=== PATIENT | female | born 1990 | race Caucasian/White ===

== ENCOUNTER 2024-10-25 12:41 | Outpatient (REF) | payer OTHER, SELFPAY ==
--- OUTSIDE RECORDS SUMMARY | 2021-02-05 21:22 | XMS_ITS | Encounter Summary ---
Author Organization [facility] Address [address], [address] [place] [address] Care Team Providers Care Railway Signal Electrician Name Role Phone Unavailable Primary Care Provider Unavailabl e Encounter Details Date Type Department Care Team (Late st Contact Info) Description 02/05/2021 8:22 PM EST Hospital Encounter Santino Jorge MD [address] [place] [address] Social History Tobacco Use Types Packs/Day Years Used Date Smoking Tobacco: Never Smokeless Tobacco: Never Alcohol Use Standard Drinks/Week Comments Yes 0 (1 standard drink = 0.6 oz pur e alcohol) rarely Comments No Sex and Gender Information Value Date Recorded Sex Assigned at Not on file Legal Sex Female 8:52 PM EST Gender Identity Not on file Sexual Orientation Not on file COVID-19 Exposure Response Date Recorded In the last month, have you been in contact with someone who was confirmed or suspected to have Coronavirus / COVID-19? No / Unsure 02/06/2021 11:04 AM EST documented as of this encounter Plan of Treatment Not on file documented as of this encounter Visit Diagnoses Diagnosis Acute cholecystitis documented in this encounter Admitting Diagnoses Diagnosis Acute cholecystitis documented in this encounter
--- OUTSIDE RECORDS SUMMARY | 2024-09-12 14:20 | XMS_ITS | Encounter Summary ---
Author Organization [facility] Address [address] [place] [address] Care Team Providers Care Bilingual Kindergarten Teacher Name Role Phone Tonie Martin MD Primary Care Provider Reason for Visit * Reason Comments Follow-up Encounter Details Date Type Department Care Team (Late st Contact Info) Description 09/12/2024 2:20 PM EDT Office Visit [facility] [address] [place] [address] Elaine Goldman PA [address] [place] [address] Other atopic dermatitis (Primary Dx) Social History Tobacco Use Types Packs/Day Years Used Date Smoking Tobacco: Never Smokeless Tobacco: Never Alcohol Use Standard Drinks/Week Comments Yes 2 (1 standard drink = 0.6 oz pure alcohol) caffeine: 1-2 cups per day occasional, coffee, soda/pop B1300 Health Literacy Answer Date Recor ded How often do you need to hav e someone help you when you read instructions, pamphlets, or other written material from your doctor or pharmacy? Never 02/26/2024 Humiliation, Afraid, Rape, and Kick questionnair e Answer Date Recorded Within the last year, have y ou been afraid of your partner or ex-partner? No 11/26/2022 Within the last year, have y ou been humiliated or emotionally abused in other ways by your partner or ex-partner? No Within the last year, have y ou been kicked, hit, slapped, or otherwise physically hurt by your partner or ex-partner? No 11/26/2022 Within the last year, have y ou been raped or forced to have any kind of sexual activity by your partner or ex-partner? No 11/26/2022 Social Connection and Isolation Panel [NHANES] A nswer Date Recorded In a typical week, how many times do you talk on the phone with family, friends, or neighbors? Three times a week 02/26/2024 How often do you get togethe r with friends or relatives? Once a week 02/26/2024 How often do you attend chur ch or buddhist services? Never 02/26/2024 Do you belong to any clubs o r organizations such as advent groups, unions, fraternal or athletic groups, or school groups? No 02/26/2024 How often do you attend meet ings of the clubs or organizations you belong to? Never 02/26/2024 Are you , , di vorced, , never , or living with a partner? 02/26/2024 AUDIT-C Answer Date Recorded Q1: How often do you have a drink containing alc ohol? Monthly or less 02/26/2024 Q2: How many drinks containi ng alcohol do you have on a typical day when you are drinking? 1 or 2 02/26/2024 Q3: How often do you have si x or more drinks on one occasion? Less than monthly 02/26/2024 Overall Financial Resource Strain (CARDIA) Answe r Date Recorded How hard is it for you to pa y for the very basics like food, housing, medical care, and heating? Not hard at all 02/26/2024 PHQ-2 Answer Date Recorded Patient Health Questionnaire-2 Score 0 09/21/2024 [facility] - Occupational Stress Questionnaire Answer Date Recorded Do you feel stress - tense, restless, nervous, or anxious, or unable to sleep at night because your mind is troubled all the time - these days? Only a little 02/26/2024 Exercise Vital Sign Answer Date Recorde d On average, how many days pe r week do you engage in moderate to strenuous exercise (like a brisk walk)? 0 days 02/26/2024 On average, how many minutes do you engage in exercise at this level? 0 min 02/26/2024 Hunger Vital Sign Answer Date Recorded Within the past 12 months, y ou worried that your food would run out before you got the money to buy more. Never true 02/26/20 24 Within the past 12 months, t he food you bought just didn't last and you didn't have money to get more. Never true 02/26/2024 PRAPARE - Transportation Answer Date Re corded In the past 12 months, has l ack of transportation kept you from medical appointments or from getting medications? No 08/2023 In the past 12 months, has l ack of transportation kept you from meetings, work, or from getting things needed for daily living? No 02/26/2024 Housing Stability Vital Sign Answer Hakeem e Recorded In the last 12 months, was t here a time when you were not able to pay the mortgage or rent on time? No 11/26/2022 In the last 12 months, how many places have you lived? 1 11/26/2022 In the last 12 months, was t here a time when you did not have a steady place to sleep or slept in a half-way (including now)? No 11/26/2022 Housing Stability Vital Sign Answer Hakeem e Recorded In the last 12 months, was t here a time when you were not able to pay the mortgage or rent on time? No 02/26/2024 Number of Times Moved in the Last Year Not on fi le 02/26/2024 At any time in the past 12 m [facility], were you homeless or living in a half-way (including now)? No 02/26/2024 Comments Unknown Sex and Gender Information Value Date Recorded Sex Assigned at Not on file Legal Sex Female 7:35 PM EDT Gender Identity Not on file Sexual Orientation Not on file documented as of this encounter Last Filed Vital Signs Vital Sign Reading Time Taken Comments Blood Pressure - - Pulse - - Temperature - - Respiratory Rate - - Oxygen Saturation - - Inhaled Oxygen Concentration - - Weight 89.5 kg (197 lb 5 oz) 09/12/2024 4:06 PM EDT Height - - Body Mass Index 34.95 06/22/2024 4:03 PM EDT documented in this encounter Functional Status * Over the past 2 weeks, how often have you been bothered by any of the following problems? Question Answer Date of Assessment Author Patient Health Questionnaire -2 Score 0 09/21/2024 4:00 PM Rain Rose MA * If you checked off any problems on this questionnaire so far, Question Answer Date of Assessment Author How difficult have these problems made it for you to do your work, take care of things at home, or get along with other people? Not difficult at all 09/21/2024 4:00 PM Ivis Rose MA * Over the last 2 weeks, how often have you been bothered by any of the following problems? Question Answer Date of Assessment Author Feeling nervous, anxious, or on edge 2 09/21/2024 4:00 PM Rain Rose MA Not being able to stop or control worrying 3 09/21/2024 4:00 PM Rain Rose MA Worrying too much about different things 3 09/21/2024 4:00 PM Rain Rose MA Trouble relaxing 3 09/21/2024 4:00 PM Arely Ghosh MA Being so restless that it is hard to sit still 0 09/21/2024 4:00 PM Rain Rose MA Becoming easily annoyed or irritable 2 09/21/2024 4:00 PM Rain Rose MA Feeling afraid as if somethi ng awful might happen 1 09/21/2024 4:00 PM Rain Rose MA HERLINDA-7 Total Score 14 09/21/2024 4:00 PM Arely Rose MA * Over the past 2 weeks, how often have you been bothered by any of the following problems? Question Answer Date of Assessment Author Little interest or pleasure in doing things Not at all 09/21/2024 4:00 PM Me colt Rose MA Feeling down, depressed, or hopeless Not at all 09/21/2024 4:00 PM Rain Rose MA Trouble falling or staying asleep, or sleeping too much Nearly every day 09/21/2024 4:00 PM Rain Rose MA Feeling tired or having little energy Nearly every day 09/21/2024 4:00 PM EDT Rain King MA Poor appetite or overeating Not at all 09/21/2024 4:00 PM Rain Rose MA Feeling bad about yourself - or that you are a failure or have let yourself or your family down Not at all 09/21/2024 4:00 PM Rain Rose MA Trouble concentrating on things, such as reading the newspaper or watching television Not at all 09/21/2024 4:00 PM KOREYT Rain King MA Moving or speaking so slowly that other people could have noticed? Or the opposite - being so fidgety or restless that you have been moving around a lot more than usual. Not at all 09/21/2024 4:00 PM Rain Rose MA Thoughts that you would be better off or hurting yourself in some way Not at all 09/21/2024 4:00 PM EDIvis Frankel MA Patient Health Questionnaire-9 Score 6 09/21/2024 4:00 PM EDTaya Frankel MA documented as of this encounter Progress Notes * RIGOBERTO Figueredo - 09/12/2024 2:20 PM EDT Images from the original note were not included. Follow up Diagnosis: Atopic Dermatitis Location: face, neck, ears, and arms Last visit: 12/22/2023 Symptoms: redness, scaling, and itching Status: worsening since last visit Treatments tried and failed: steriods creams - Used Tacrolimus ointment 12/22/2023- Current. - Used Triamcinolone cream 04/11/2019-03/2022. - Used Hydrocortisone cream 03/2022- Current. Current treatment: Protopic ointment and hydrocortisone bid, sometimes more than 2 times a day and moisturizer called la vance posay. Patient is currently on tobradex steriod ointment for her eyes 1-2 times a day or as needed All pertinent medical history, medications, and allergies were reviewed. General Exam: alert, oriented to person, place, and time, normal affect, well appearing Unaccompanied A focused exam completed based on patient reported problems, see below: Skin Exam 1. OTHER ATOPIC DERMATITIS Generalized Scaly erythematous plaques +/- dyspigmentation, lichenification, excoriations. Flaring today. BSA 40%. IGA 3 Discussed that atopic dermatitis is a chronic condition that can be controlled but not cured. This is a known condition for the patient. She has had past flares in this area, treated with topical steroids. Would like to avoid topical steroids as fci use on the face is contraindicated and can lead to perioral dermatitis. She has now tried and failed, Triamcinolone, Hydrocortisone and Protopic for longer than 90 days. She continues to flare on the face and extremities. This has started to affect her daily life and her vision as well. Oral options used to treat atopic dermatitis carry significant risks that often outweigh their benefits in [id number] disease. Here's a breakdown of why these treatments are used with caution or not preferred: 1. JOSHUA Inhibitors (e.g., upadacitinib, abrocitinib, tofacitinib) Risks: Increased risk of serious infections, blood clots, cardiovascular events, and malignancy. Contraindicated in this patient with hypertension. FDA warning: Boxed warning for serious side effects. 2. Prednisone (oral corticosteroids) Short-term use only: While effective, systemic corticosteroids like prednisone are not recommended for long-term management due to: Rebound flares after discontinuation Risk of adrenal suppression Osteoporosis, hypertension, diabetes, weight gain Mood/psychiatric effects. Contraindicated in this patient who has depression. Sometimes used for short-term rescue therapy during severe flares but should be avoided for chronicmanagement. 3. CellCept (Mycophenolate mofetil) Immunosuppressive: Strongly suppresses the immune system, raising infection and cancer risks. Side effects: GI upset, bone marrow suppression, liver toxicity. Monitoring: Requires regular lab monitoring (CBC, LFTs). Off-label use: Not FDA-approved for eczema; used only in severe, treatment- resistant cases. Due to contraindications of oral treatments and failed topical treatments. Plan to start Dupixent 600 mg subcutaneous loading dose, then maintenance dose of 300 mg subcutaneous Q 2 weeks once PA is approved. Reviewed side effects of dupixent including conjunctivitis, allergic reactions, and injection site reactions. Continue Protopic 0.1% ointment bid prn when flared, hold if smooth/asymptomatic, and start TAC 0.1% apply topically to affected areas on body bid as needed, avoid intertriginous regions with steroid. Encouraged daily moisturizing and gentle cleansers to prevent flares. triamcinolone (Kenalog) 0.1 % cream Apply topically to neck and arms bid as needed, avoid face, axilla, and groin Related Medications tacrolimus (Protopic) 0.1 % ointment Apply to affected areas, twice a day when flared, 30 day supply Next Visit: Pending PA approval documented in this encounter Plan of Treatment Not on file documented as of this encounter Visit Diagnoses Diagnosis Other atopic dermatitis- Primary documented in this encounter Additional Health Concerns Assessment Noted Time PHQ-9 Depression Total Score: 7 06/23/19 25 4:00 PM EDT documented as of this encounter Care Teams Bilingual Kindergarten Teacher Relationship Specialty Start Date End Date Tonie Martin MD [address] [place] [address] PCP - General Family Medicine 02/23/24 documented as of this encounter
--- OUTSIDE RECORDS SUMMARY | 2024-10-25 08:30 | XMS_ITS | Encounter Summary ---
Author Organization [facility] Address [address] [place] [address] Care Team Providers Care Delicatessen Clerk Name Role Phone Tonie Martin MD Primary Care Provider [phone] Reason for Visit * Reason Comments Gynecologic Exam Encounter Details Date Type Department Care Team (Late st Contact Info) Description 10/25/2024 8:30 AM EDT Office Visit [facility] [address] [id number] Stan Ely DO [address] [place] [address] Well woman exam with routine gynecological exam; Uses control Social History Tobacco Use Types Packs/Day Years [...] often do you attend chur ch or restoration services? Never 02/26/2024 Do you belong to any clubs o r organizations such as worship groups, unions, fraternal or athletic groups, or [...] Recorded Patient Health Questionnaire-2 Score 0 09/21/2024 [facility] Occupational Stress Questionnaire Answer [...] place to sleep or slept in a chcf (including now)? No 11/26/2022 Housing Stability Vital Sign Answer Hakeem e Recorded In the last 12 months, was t here a time when you were not able to pay the mortgage or rent on time? No 02/26/2024 Number of Times Moved in the Last Year Not on fi le 02/26/2024 At any time in the past 12 m [facility], were you homeless or living in a chcf (including now)? No 02/26/2024 Comments No Sex and Gender Information Value Date Recorded Sex Assigned at Not on file Legal Sex Female 7:35 PM EDT Gender Identity Not on file Sexual Orientation Not on file documented as of this encounter Last Filed Vital Signs Vital Sign Reading Time Taken Comments Blood Pressure 122/74 10/25/2024 8:35 AM EDT Pulse - - Temperature - - Respiratory Rate - - Oxygen Saturation - - Inhaled Oxygen Concentration - - Weight 91.2 kg (201 lb) 10/25/2024 8:35 AM EDT Height 160 cm (5' 3 ) 10/25/2024 8:35 AM EDT Body Mass Index 35.61 10/25/2024 8:35 AM EDT documented in this encounter Progress Notes * RIGOBERTO Dunn - 10/25/2024 8:30 AM EDT Reason for Appointment: Patient ID: Franci Everett is a 34 y.o. female who presents for Gynecologic Exam Patient presents today for Annual Exam. MEDICATIONS Current Outpatient Medications Medication Instructions levonorgestrel-ethinyl estradiol (Setlakin) 0.15-0.03 MG tablet 1 tablet, Oral, Daily sertraline (ZOLOFT) 50 mg, Oral, Daily tacrolimus (Protopic) 0.1 % ointment Apply to affected areas, twice a day when flared, 30 day supply triamcinolone (Kenalog) 0.1 % cream Apply topically to neck and arms bid as needed, avoid face, axilla, and groin Ubrogepant (Ubrelvy) 100 MG tablet 100mg (1 tablet) as needed for migraine attack. May take [id number] (1 tablet) 2 hours after first dose if needed. Max dose 200mg/24 hours. ALLERGIES No Known Allergies PROBLEMS Active Ambulatory Problems Diagnosis Date Noted Acute cholecystitis 02/05/2021 Allergic conjunctivitis 11/27/2022 Bleeding external hemorrhoids 11/27/2022 Cholelithiasis 11/27/2022 Class 1 obesity 11/27/2022 Obesity 11/27/2022 Contact dermatitis 11/27/2022 Eczema 11/27/2022 Elevated blood pressure reading without diagnosis of hypertension 11/27/2022 Gastroesophageal reflux disease 11/27/2022 Migraine with aura 11/27/2022 Depression 11/27/2022 depression 11/27/2022 Seasonal allergic rhinitis 11/27/2022 Sinusitis 11/27/2022 Resolved Ambulatory Problems Diagnosis Date Noted No Resolved Ambulatory Problems Past Medical History: Diagnosis Date Allergic rhinitis Blood pressure elevated without history of HTN BP check Cholecystitis/cholelithiasis-2020 Conjunctivitis Contraception management Migraine Miscarriage ([facility]) Obesity (BMI 30-39.9) Uses control Well woman exam HISTORY PAST MEDICAL HISTORY SOCIAL HISTORY Past Medical History: Diagnosis Date Allergic conjunctivitis Allergic rhinitis Blood pressure elevated without history of HTN BP check Cholecystitis/cholelithiasis-2020 Conjunctivitis Contact dermatitis Contraception management Depression Eczema Migraine Miscarriage ([facility]) at 9wks April 2017 Obesity (BMI 30-39.9) Sinusitis Uses control Well woman exam Social History Tobacco Use Smoking status: Never Smokeless tobacco: Never Vaping Use Vaping status: Never Used Substance Use Topics Alcohol use: Yes Alcohol/week: 2.0 standard drinks of alcohol Types: 2 Standard drinks or equivalent per week Comment: caffeine: 1-2 cups per day occasional, coffee, soda/pop Drug use: Never FAMILY HISTORY Family History Problem Relation Name Age of Onset Allergic rhinitis Mother Lumbar disc disease Mother Depression Mother Asthma Father Heraclio Other (teenage ) Sister Diabetes Paternal Grandmother Hypertension Paternal Grandmother Hyperlipidemia Paternal Grandmother Arthritis Paternal Grandmother Melanoma Neg Hx SURGICAL HISTORY Past Surgical History: Procedure Laterality Date CHOLECYSTECTOMY 02/2021 [place] DILATION AND CURETTAGE 04/2017 @ [facility] MARCUM 01/2021 [facility] REVIEW OF SYSTEMS Review of Systems: Review of Systems Constitutional: Negative. HENT: Negative. Eyes: Negative. Respiratory: Negative. Cardiovascular: Negative. Gastrointestinal: Negative. Genitourinary: Negative. Musculoskeletal: Negative. Skin: Negative. Neurological: Negative. All other systems reviewed and are negative. Hematological: Negative. Endocrine: Negative. Allergic/Immunologic: Negative. OBJECTIVE Objective: Physical Exam Constitutional: Appearance: Normal appearance. She is normal weight. Genitourinary: Right Adnexa: not tender and no mass present. Left Adnexa: not tender and no mass present. No cervical discharge. Breasts: Breasts are soft. Right: Normal. Left: Normal. HENT: Head: Normocephalic. Nose: Nose normal. Mouth/Throat: Mouth: Mucous membranes are moist. Cardiovascular: Rate and Rhythm: Normal rate. Pulses: Normal pulses. Pulmonary: Effort: Pulmonary effort is normal. Breath sounds: Normal breath sounds. Abdominal: General: Bowel sounds are normal. Palpations: Abdomen is soft. Musculoskeletal: General: Normal range of motion. Cervical back: Normal range of motion. Neurological: General: No focal deficit present. Mental Status: She is alert and oriented to person, place, and time. Skin: General: Skin is warm and dry. Psychiatric: Mood and Affect: Mood normal. Behavior: Behavior normal. Thought Content: Thought content normal. Judgment: Judgment normal. Vitals and nursing note reviewed. Exam conducted with a rope coiling machine operator present. Vitals: Estimated body mass index is 35.61 kg/m?? as calculated from the following: Height as of this encounter: 5' 3 . Weight as of this encounter: 201 lb. BP: 122/74 No LMP recorded (lmp unknown). (Menstrual status: Oral Contraception). ASSESSMENT & PLAN ICD-10-CM 1. Well woman exam with routine gynecological exam Z01.419 Pap Smear HPV DNA probe, amplified 2. Uses control Z78.9 levonorgestrel-ethinyl estradiol (Setlakin) 0.15- 0.03 MG tablet Annual Exam: Patient presents today for an annual exam. Patient states she is doing well and has no complaints. Pap was obtained without difficulty. Orders Placed This Encounter Procedures HPV DNA probe, amplified Follow Up: Patient is to return in one year for annual unless needed otherwise. Documented by RIGOBERTO Dunn documented in this encounter Plan of Treatment Scheduled Orders Name Type Priority Associated Diagnoses Orde r Schedule Pap Smear Pathology and Cytology Routine Well woman exam with routine gynecological exam Ordered: 10/25/2024 HPV DNA probe, amplified Microbiology Routine Well woman exam with routine gynecological exam Ordered: 10/25/2024 documented as of this encounter Procedures Procedure Name Priority Date/Time Associated Diagnosis Comments PAP SMEAR Routine 06/09/2022 12:00 AM EDT documented in this encounter Results * Pap Smear (06/09/2022 12:00 AM EDT) Swab Cervical swab / Unknown us Stan Jhoana DO LAB CYTOLOGY ORDERABLES Final Re sult EXTERNAL LAB documented in this encounter Visit Diagnoses Diagnosis Well woman exam with routine gynecological exam Routine gynecological examination Uses control documented in this encounter Additional Health Concerns Assessment Noted Time PHQ-9 Depression Total Score: 6 09/22/19 25 4:00 PM EDT documented as of this encounter Care Teams Delicatessen Clerk Relationship Specialty Start Date End Date Tonie Martin MD [address] [place] [address] PCP - General Family Medicine 02/23/24 documented as of this encounter
--- OUTSIDE RECORDS SUMMARY | 2024-10-25 12:53 | XMS_ITS | Clinical Summary ---
Author Organization [facility] Address [address] [place] [address] Care Team Providers Care Gas Welder Name Role Phone Tonie Martin MD Primary Care Provider [phone] Allergies No known active allergies Medications tacrolimus (Protopic) 0.1 % ointmentIndicat ions:Other atopic dermatitis Apply to affected areas, twice a day when flared, 30 day supply 30 g 11 4 Active triamcinolone (Kenalog) 0.1 % creamIndication s:Other atopic dermatitis Apply topically to neck and arms bid as needed, avoid face, axilla, and groin 453.6 g 11 5 Active Ubrogepant (Ubrelvy) 100 MG tabletIndicatio ns:Migraine with aura and without status migrainosus, not intractable 100mg (1 tablet) as needed for migraine attack. May take another 100mg (1 tablet) 2 hours after first dose if needed. Max dose 200mg/24 hours. 16 tablet 1 5 Active sertraline (Zoloft) 50 MG tabletIndicatio ns:Moderate episode of recurrent major depressive disorder (HCC),Anxiety Take 1 tablet (50 mg) by mouth Daily 30 tablet 5 11/12/19 25 Active levonorgestrel- ethinyl estradiol (Setlakin) 0.15-0.03 MG tabletIndicatio ns:Uses control Take 1 tablet by mouth Daily 91 tablet 3 5 01/25/20 25 Active levonorgestrel- ethinyl estradiol (Setlakin) 0.15-0.03 MG tabletIndicatio ns:Uses control Take 1 tablet by mouth Daily 91 tablet 5 10/26/19 25 Discontinu ed(Reorder ) sertraline (Zoloft) 50 MG tabletIndicatio ns:Moderate episode of recurrent major depressive disorder (HCC),Anxiety Take 1 tablet (50 mg) by mouth Daily 5 10/12/19 25 Discontinu ed(Reorder ) Active Problems Problem Noted Date Diagnosed Date Allergic conjunctivitis 11/27/2022 Bleeding external hemorrhoids 11/27/2022 Cholelithiasis 11/27/2022 Class 1 obesity 11/27/2022 Obesity 11/27/2022 Contact dermatitis 11/27/2022 Eczema 11/27/2022 Elevated blood pressure read ing without diagnosis of hypertension 11/27/2022 Gastroesophageal reflux disease 11/27/2022 Assessment & Plan (09/21/2024 4:53 PM EDT): Orders: CBC and differential; Future Comprehensive metabolic panel; Future Stable Migraine with aura 11/27/2022 Assessment & Plan (09/21/2024 4:53 PM EDT): Orders: Ubrogepant (Ubrelvy) 100 MG tablet; 100mg (1 tablet) as needed for migraine attack. May take another 100mg (1 tablet) 2 hours after first dose if needed. Max dose 200mg/24 hours. Depression 11/27/2022 Assessment & Plan (09/21/2024 4:53 PM EDT): Orders: sertraline (Zoloft) 50 MG tablet; Take 1 tablet (50 mg) by mouth Daily depression 11/27/2022 Seasonal allergic rhinitis 11/27/2022 Sinusitis 11/27/2022 Acute cholecystitis 02/05/2021 Encounters Date Type Department Care Team Description 10/25/2024 8:30 AM EDT Office Visit [facility] [address] [place] [address] [place] [address] Stan Ely, DO Well woman exam with routine gynecological exam; Uses control 10/25/2024 Bamboo flowsheet [facility] [address] [place] [address] [place] [address] Stan Ely DO 10/11/2024 Refill [facility] [address] [facility] [place] [address] Tonie Martin MD Moderate episode of recurrent major depressive disorder (HCC); Anxiety 10/03/2024 Telephone [facility] [address] [facility] [place] [address] Tonie Martin MD 09/22/2024 Telephone [facility] [address] [facility] [place] [address] Belen Smith MA 09/21/2024 4:00 PM EDT Office Visit [place] [id number] [facility] [place] [address] Tiesha Yeh NP Routine general medical examination at a health care facility (Primary Dx); Moderate episode of recurrent major depressive disorder (HCC); Lipid screening; Migraine with aura and without status migrainosus, not intractable ; Gastroesophageal reflux disease without esophagitis; Morbid (severe) obesity due to excess calories ([facility]); Body mass index (BMI) 35.0-35.9, adult; Anxiety; Encounter for screening for diabetes mellitus; Mass of left side of neck 09/21/2024 Bamboo flowsheet [facility] [address] [facility] [place] [address] Tiesha Yeh NP 09/21/2024 Travel 09/20/2024 Travel 09/15/2024 Telephone [facility] [address] [place] [address] Aubree Palomino LPN Prior Authorization 09/12/2024 2:20 PM EDT Office Visit [facility] [address] [place] [address] Elaine Goldman PA Other atopic dermatitis (Primary Dx) 09/12/2024 Bamboo flowsheet [facility] [address] [place] [address] Elaine Goldman PA 09/12/2024 Travel 09/11/2024 Travel 09/08/2024 Telephone [facility] [address] [address] Herminia Ramon LPN from Last 3 Months Immunizations Immunization Administration Dates Next Due DTP 11/04/2020 Influenza, injectable, quadrivalent 01/31/2021 Family History Medical History Relation Name Comments Asthma Father Heraclio Allergic rhinitis Mother Depression Mother Lumbar disc disease Mother Arthritis Paternal Grandmother Diabetes Paternal Grandmother Hyperlipidemia Paternal Grandmother Hypertension Paternal Grandmother teenage Sister Melanoma Neg Hx Relation Name Status Comments Daughter x3 Father Heraclio Alive Mother Alive Paternal Grandmother Sister Social History Tobacco Use Types Packs/Day Years Used Date Smoking Tobacco: Never Smokeless Tobacco: Never Tobacco Cessation:Counseling Given: Not Answered Alcohol Use Standard Drinks/Week Comments Yes 2 [...] 02/26/2024 How often do you attend chur or sabianist services? Never 02/26/2024 Do you belong to any clubs o r organizations such as synagogue groups, unions, fraternal or athletic groups, or [...] Recorded Patient Health Questionnaire-2 Score 0 09/21/2024 [facility]ational Stress Questionnaire [...] place to sleep or slept in a fci (including now)? No 11/26/2022 Housing Stability Vital Sign Answer Hakeem e Recorded In the last 12 months, was t here a time when you were not able to pay the mortgage or rent on time? No 02/26/2024 Number of Times Moved in the Last Year Not on fi le 02/26/2024 At any time in the past 12 m [facility], were you homeless or living in a fci (including now)? No 02/26/2024 Comments No Sex and Gender Information Value Date Recorded Sex Assigned at Not on file Legal Sex Female 7:35 PM EDT Gender Identity Not on file Sexual Orientation Not on file Last Filed Vital Signs Vital Sign Reading Time Taken Comments Blood Pressure 122/74 10/25/2024 8:35 AM EDT Pulse 83 09/21/2024 3:59 PM EDT Temperature 36.6 C (97.8 F) 09/21/2024 3:59 PM EDT Respiratory Rate 18 06/22/2024 4:03 PM EDT Oxygen Saturation 96% 09/21/2024 3:59 PM EDT Inhaled Oxygen Concentration - - Weight 91.2 kg (201 lb) 10/25/2024 8:35 AM EDT Height 160 cm (5' 3 ) 10/25/2024 8:35 AM EDT Body Mass Index 35.61 10/25/2024 8:35 AM EDT Plan of Treatment Health Maintenance Due Date Last Done Comments Influenza Vaccine (#1) 2024 01/31/2021 Cervical Cancer Screening 06/10/2027 HPV/Cotest 06/10/2027 06/09/2022 Pap Smear 06/10/2027 06/09/2022 Procedures Procedure Name Priority Date/Time Associated Diagnosis Comments TSH W/REFLEX TO FT4 Routine 09/21/2024 4 :25 PM EDT Morbid (severe) obesity due to excess calories (CMS-HCC) Body mass index (BMI) 35.0-35.9, adult Anxiety LIPID PANEL Routine 09/21/2024 4:25 PM EDT Routine general medical examination at a health care facility Lipid screening Morbid (severe) obesity due to excess calories (CMS-HCC) Body mass index (BMI) 35.0-35.9, adult COMPREHENSIVE METABOLIC PANEL Routine 09/21/2024 4:25 PM EDT Routine general medical examination at a health care facility Gastroesophageal reflux disease without esophagitis Morbid (severe) obesity due to excess calories (CMS-HCC) Body mass index (BMI) 35.0-35.9, adult Encounter for screening for diabetes mellitus CBC (INCLUDES DIFF/PLT) Routine 09/21/2024 4:25 PM EDT Routine general medical examination at a health care facility Gastroesophageal reflux disease without esophagitis Morbid (severe) obesity due to excess calories (CMS-HCC) Body mass index (BMI) 35.0-35.9, adult PAP SMEAR Routine 06/09/2022 12:00 AM EDT from Last 3 Months or Most Recently Relevant to Health Maintenance Results * TSH W/REFLEX TO FT4 (09/21/2024 4:25 PM EDT) TSH W/REFLEX TO FT4 3.30 mIU/L [facility] Comment: Reference Range > or = 20 Years 0.40-4.50 Ranges First trimester 0.26-2.66 Second trimester 0.55-2.73 Third trimester 0.43-2.91 09/21/2024 4:25 PM EDT 09/21/2024 4:25 PM EDT Narrative Resulting Agency Comment Performing Organization Information Site ID: QPT Name: [facility] Address: [address], [address] [place] [address] Director: Kali Cunningham MD us Tiesha Yeh [employer] LAB BLOOD ORDERABLES Final Resu lt [facility] * CBC and differential (09/21/2024 4:25 PM EDT) WHITE BLOOD CELL COUNT 8.8 3.8 - 10.8 Thousand/u L [facility] RED BLOOD CELL COUNT 3.96 3.80 - 5.10 Million/uL [facility] HEMOGLOBIN 12.9 11.7 - 15.5 g/dL [facility] HEMATOCRIT 38.7 35.0 - 45.0 % [facility] MCV 97.7 80.0 - 100.0 fL [facility] MCH 32.6 27.0 - 33.0 pg [facility] MCHC 33.3 32.0 - 36.0 g/dL [facility] Comment: For adults, a slight decrease in the calculated MCHC value (in the range of 30 to 32 g/dL) is most likely not clinically significant; however, it should be interpreted with caution in correlation with other red cell parameters and the patient's clinical condition. RDW 11.7 11.0 - 15.0 % [facility] PLATELET COUNT 316 140 - 400 Thousand/u L [facility] MPV 11.0 7.5 - 12.5 fL [facility] ABSOLUTE NEUTROPHILS 5,236 1,500 - 7,800 cells/uL [facility] ABSOLUTE LYMPHOCYTES 2,772 850 - 3,900 cells/uL [facility] ABSOLUTE MONOCYTES 484 200 - 950 cells/uL [facility] ABSOLUTE EOSINOPHILS 246 15 - 500 cells/uL [facility] ABSOLUTE BASOPHILS 62 0 - 200 cells/uL [facility] NEUTROPHILS 59.5 % [facility] LYMPHOCYTES 31.5 % [facility] MONOCYTES 5.5 % [facility] EOSINOPHILS 2.8 % [facility] BASOPHILS 0.7 % [facility] Blood Venous blood specimen / Unknown 09/21/2024 4:25 PM EDT 09/21/2024 4:25 PM EDT Narrative Resulting Agency Comment Performing Organization Information Site ID: QPT Name: [facility] Address: [address], [address] [place] [address] Director: Kali Cunningham MD us Tiesha Yeh [employer] [facility] BLOOD ORDERABLES Final Resu lt [facility] * (ABNORMAL) Lipid panel (09/21/2024 4:25 PM EDT) CHOLESTEROL, TOTAL 206(H) <200 mg/dL [facility] HDL CHOLESTEROL 57 > OR = 50 mg/dL [facility] TRIGLYCERIDES 84 <150 mg/dL [facility] LDL CHOLESTEROL 131(H) mg/dL (calc) [facility] Comment: Reference range: <100 Desirable range <100 mg/dL for primary prevention; <70 mg/dL for patients with CHD or diabetic patients with > or = 2 CHD risk factors. LDL-C is now calculated using the Tory calculation, which is a validated novel method providing better accuracy than the Friedewald equation in the estimation of LDL-C. Jasper GUO et al. RAMA. 2013;310(19): 0049-5165 (http://education.TrustGo/faq/GJU614) CHOL/HDLC RATIO 3.6 <5.0 (calc) [facility] NON HDL CHOLESTEROL 149(H) <130 mg/dL (calc) [facility] Comment: For patients with diabetes plus 1 major ASCVD risk factor, treating to a non-HDL-C goal of <100 mg/dL (LDL-C of <70 mg/dL) is considered a therapeutic option. Blood Venous blood specimen / Unknown 09/21/2024 4:25 PM EDT 09/21/2024 4:25 PM EDT Narrative Resulting Agency Comment Performing Organization Information Site ID: QPT Name: [facility] Address: [address] [place] [address], [address] [place] [phone] Director: Kali Cunningham MD Tiesha Yeh [employer] [facility] BLOOD ORDERABLES Final Resu lt [facility] * Comprehensive metabolic panel (09/21/2024 4:25 PM EDT) Glucose 83 65 - 99 mg/dL [facility] Comment: Fasting reference interval BUN 19 7 - 25 mg/dL [facility] Creatinine 0.55 0.50 - 0.97 mg/dL [facility] EGFR 123 > OR = 60 mL/min/1. 73m2 [facility] BUN/CREATININE RATIO SEE NOTE: 6 - 22 (calc) [facility] Comment: Not Reported: BUN and Creatinine are within reference range. Sodium 138 135 - 146 mmol/L [facility] Potassium, Bld 4.1 3.5 - 5.3 mmol/L [facility] Chloride 105 98 - 110 mmol/L [facility] Carbon Dioxide 26 20 - 32 mmol/L [facility] Calcium 9.1 8.6 - 10.2 mg/dL [facility] PROTEIN, TOTAL 6.3 6.1 - 8.1 g/dL [facility] ALBUMIN 3.9 3.6 - 5.1 g/dL [facility] GLOBULIN 2.4 1.9 - 3.7 g/dL (calc) [facility] ALBUMIN/GLOBULIN RATIO 1.6 1.0 - 2.5 (calc) [facility] BILIRUBIN, TOTAL 0.5 0.2 - 1.2 mg/dL [facility] ALKALINE PHOSPHATASE 67 31 - 125 U/L [facility] AST 12 10 - 30 U/L [facility] ALT 16 6 - 29 U/L [facility] Blood Venous blood specimen / Unknown 09/21/2024 4:25 PM EDT 09/21/2024 4:25 PM EDT Narrative Resulting Agency Comment Performing Organization Information Site ID: QPT Name: [facility] Address: [address] [place] [address], [address] [place] [phone] Director: Kali Cunningham MD us Tiesha Yeh [employer] BLOOD ORDERABLES Final Resu lt [facility] * Pap Smear (06/09/2022 12:00 AM EDT) Swab Cervical swab / Unknown us Stan Ely DO LAB CYTOLOGY ORDERABLES Final Re sult EXTERNAL LAB from Last 3 Months or Most Recently Relevant to Health Maintenance [address] [place] [address] [facility] Care Teams Gas Welder Relationship Specialty Start Date End Date Tonie Mratin MD [address] [place] [address] PCP - General Family Medicine 02/23/24
--- OUTSIDE RECORDS SUMMARY | 2024-10-25 12:53 | XMS_ITS | Encounter Summary ---
Author Organization [facility] Address [address] [facility] [place] [address] Care Team Providers Care Diver Helper Name Role Phone Tonie Martin MD Primary Care Provider [phone] Encounter Details Date Type Department Care Team (Late st Contact Info) Description 10/11/2024 Refill [facility] Family Medicine [address] [place] [address] Tonie Martin MD [address] [place], [place] [id number] Moderate episode of recurrent major depressive disorder (HCC); Anxiety Social History Tobacco Use Types Packs/Day Years [...] often do you attend chur ch or yazidism services? Never 02/26/2024 Do you belong to any clubs o r organizations such as taoism groups, unions, fraternal or athletic groups, or [...] Recorded Patient Health Questionnaire-2 Score 0 09/21/2024 [facility] Occupat ional Health - Occupational Stress [...] any time in the past 12 m [facility], were you homeless or living in a chcf (including now)? No 02/26/2024 Comments Unknown Sex and Gender Information Value Date Recorded Sex Assigned at Not on file Legal Sex Female 7:35 PM EDT Gender Identity Not on file Sexual Orientation Not on file documented as of this encounter Plan of Treatment Not on file documented as of this encounter Visit Diagnoses Diagnosis Moderate episode of recurrent major depressive disorder (HCC) Anxiety Anxiety state, unspecified documented in this encounter Additional Health Concerns Assessment Noted Time PHQ-9 Depression Total Score: 6 09/22/19 25 4:00 PM EDT documented as of this encounter Care Teams Diver Helper Relationship Specialty Start Date End Date Tonie Martin MD [address] [place] [address] PCP - General Family Medicine 02/23/24 documented as of this encounter
--- OUTSIDE RECORDS SUMMARY | 2024-10-25 12:53 | XMS_ITS | Encounter Summary ---
Author Organization [facility] Address [address] [place] [address] Care Team Providers Care Pipe Caulker Name Role Phone Tonie Martin MD Primary Care Provider [phone] Encounter Details Date Type Department Care Team (Late st Contact Info) Description 10/25/2024 Bamboo flowsheet [facility] [address] [place] [address] Stan Ely DO [address] [facility] [address] Darren Escobar, [facility] Social History Tobacco Use Types Packs/Day Years [...] How often do you attend chur or islam services? Never 02/26/2024 Do you belong to any clubs o r organizations such as spiritism groups, unions, fraternal or athletic groups, or [...] Recorded Patient Health Questionnaire-2 Score 0 09/21/2024 [facility] of Occupat ional Health - Occupational Stress [...] place to sleep or slept in a senior living (including now)? No 11/26/2022 Housing Stability Vital Sign Answer Hakeem e Recorded In the last 12 months, was t here a time when you were not able to pay the mortgage or rent on time? No 02/26/2024 Number of Times Moved in the Last Year Not on fi le 02/26/2024 At any time in the past 12 m [facility], were you homeless or living in a senior living (including now)? No 02/26/2024 Comments No Sex and Gender Information Value Date Recorded Sex Assigned at Not on file Legal Sex Female 7:35 PM EDT Gender Identity Not on file Sexual Orientation Not on file documented as of this encounter Plan of Treatment Not on file documented as of this encounter Visit Diagnoses Not on filedocumented in this encounter Additional Health Concerns Assessment Noted Time PHQ-9 Depression Total Score: 6 09/22/19 25 4:00 PM EDT documented as of this encounter Care Teams Pipe Caulker Relationship Specialty Start Date End Date Tonie Martin MD [address] [place] [address] PCP - General Family Medicine 02/23/24 documented as of this encounter
--- OUTSIDE RECORDS SUMMARY | 2024-10-25 12:53 | XMS_ITS | Encounter Summary ---
Author Organization [facility] Address [address] [place] [address] Care Team Providers Care Stringed Instrument Tuner Name Role Phone Tonie Martin MD Primary Care Provider [phone] Reason for Visit * Reason Onset Date Comments Prior Authorization 09/15/2024 Encounter Details Date Type Department Care Team (Late st Contact Info) Description 09/15/2024 Telephone [facility] [address] [facility] [address] [place] [phone] Georgette, Aubree, ELECTRICAL PANEL BUILDER [address] [place] [address] Prior Authorization Social History Tobacco Use Types Packs/Day Years [...] How often do you attend chur or buddhism services? Never 02/26/2024 Do you belong to any clubs o r organizations such as tenriism groups, unions, fraternal or athletic groups, or [...] Date Recorded Patient Health Questionnaire-2 Score 0 06/22/2024 [facility] of Occupat ional Health - Occupational [...] to sleep or slept in a senior care (including now)? No 11/26/2022 Housing Stability Vital Sign Answer Hakeem e Recorded In the last 12 months, was t here a time when you were not able to pay the mortgage or rent on time? No 02/26/2024 Number of Times Moved in the Last Year Not on fi le 02/26/2024 At any time in the past 12 m [facility], were you homeless or living in a senior care (including now)? No 02/26/2024 Comments Unknown Sex and Gender Information Value Date Recorded Sex Assigned at Not on file Legal Sex Female 7:35 PM EDT Gender Identity Not on file Sexual Orientation Not on file documented as of this encounter Miscellaneous Notes * Telephone Encounter - Aubree Palomino LPN - 10/20/2024 7:21 PM EDT Received signed appeal form from pt. Faxed appeal request to [employer]. Determination is pending. * Telephone Encounter - Aubree Palomino LPN - 10/18/2024 3:57 PM EDT LM for pt inquiring if she received e-mail? * Telephone Encounter - Aubree Palomino LPN - 10/13/2024 5:42 PM EDT Pt verified e-mail. Form e-mailed to pt to sign. * Telephone Encounter - Aubree Palomino LPN - 10/13/2024 10:34 AM EDT No response from pt. Left second message today asking her to please call back to confirm her e-mailaddress so that the Appeal form can be signed and e-mailed back to this public relations writer. Will mail form at this time as well. * Telephone Encounter - Aubree Palomino LPN - 10/11/2024 10:15 AM EDT LM for pt asking if she is able to sign [employer] appeal form and return it to this public relations writer via e-mail. * Telephone Encounter - Aubree Palomino LPN - 10/06/2024 4:59 PM EDT Federico denied original PA request due to additional info submitted after 7 days. They accepted and reviewed the additional info as a first level appeal. The appeal has been denied due to the following reasons: Policy for adults with atopic dermatitis requires all of the following: The pt has a dx of mod-severe atopic dermatitis categorized with at least 10% BSA involvement or the pt has involvement of body sites that are difficult to treat with prolonged Topical corticosteroid therapy (e.g. hands, feet,face, neck, scalp, genitals/ groin, skin folds) AND clinical documentation providing evidence that you have tried and failed ALL of the followin) One mod to high potency topical steroid, 2) One topical calcineuron inhibitor AND 30 One oral disease modifying agent for atopic dermatitis. Please advise. * Telephone Encounter - Aubree Palomino LPN - 10/03/2024 5:22 PM EDT P/c to [employer] to verify the additional info was received and repRosey states yes, we received it and it went into appeal as of today. Informed that the letter from 09/28 stated they needed a response in 7 days before it would turn into an appeal. She states they sent a notification on 09/19. Informed her the notification from 09/19 did not give a timeframe of 7 days nor one at all. Informed the form sent 09/28 gave the timeframe of 7 days. Rosey repeated herself. Asked if they have everything needed for appeal then? Rosey states I would not know because I am not in clinicals. Asked to speak toa clinicals stated unfortunately, you would only be able to e-mail them. Have e-mail a ddress. Call ended. * Telephone Encounter - Aubree Palomino LPN - 10/03/2024 9:59 AM EDT Thank you! Additional info faxed to [employer] at this time. * Telephone Encounter - Aubree Palomino LPN - 09/29/2024 7:00 PM EDT Pt called back and was able to obtain information from the pharmacy. Per pt: Used Tacrolimus ointment 12/22/2023- Current. Used Triamcinolone cream 04/11/2019-03/2022. Used Hydrocortisone cream 03/2022- Current. Elaine, could you please add the above information to office note? Thanks! * Telephone Encounter - Aubree Palomino LPN - 09/26/2024 4:23 PM EDT P/c to pt. Pt reports she does not know exact dates that she started the TAC and Hydrocortisone. Ptstates she used them prior to being evaluated at our office. Asked pt if she is able to call the pharmacy and inquire if they can give her dates? Pt states she will try and get back to the office. * Telephone Encounter - Aubree Palomino LPN - 09/19/2024 2:37 PM EDT Received request for additional information from [employer]. They are requesting that the office provide the following information: Start/stop dates for Hydrocortisone and Triamcinolone. Do not see this information in the notes. LM for pt asking that she provide this information. Will then have provider add to the chart notes. * Telephone Encounter - Aubree Palomino LPN - 09/15/2024 5:28 PM EDT Received Specialty Medication Start form for Dupixent Starter and Maintenance doses. 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 Determination is pending. documented in this encounter Plan of Treatment Not on file documented as of this encounter Visit Diagnoses Not on filedocumented in this encounter Additional Health Concerns Assessment Noted Time PHQ-9 Depression Total Score: 7 06/23/19 25 4:00 PM EDT documented as of this encounter Care Teams Stringed Instrument Tuner Relationship Specialty Start Date End Date Tonie Martin MD [address] [place] [address] PCP - General Family Medicine 02/23/24 documented as of this encounter
--- OUTSIDE RECORDS SUMMARY | 2024-10-25 12:53 | XMS_ITS | Clinical Summary ---
Author Organization [facility] Address [id number] [address] [place] [address] Care Team Providers Care Assistant Service Manager Name Role Phone Deedee Tate DO Primary Care Provider Unavaila ble Allergies No known active allergies Medications sertraline (ZOLOFT) 50 mg tablet Take 50 mg by mouth daily. Active norethindrone ac-eth estradioL (FEMHRT 03/27) 1-5 mg-mcg tablet Take by mouth daily. Active topiramate (TOPAMAX) 50 mg tablet Take 50 mg by mouth 2 (two) times a day. Active HYDROcodone-acetam inophen (NORCO) 7.5-325 mg per tabletIndications: Calculus of gallbladder without cholecystitis without obstruction Take 1 tablet by mouth every 6 (six) hours as needed for pain for up to 25 doses. Max Daily Amount: 4 tablets 25 tablet Active Active Problems No known active problems Social History Tobacco Use Types Packs/Day Years Used Date Smoking Tobacco: Never Smokeless Tobacco: Never Alcohol Use Standard Drinks/Week Comments Yes 0 (1 standard drink = 0.6 oz pur e alcohol) occasional Childcare Answer Date Recorded Childcare Unknown 09/01/2018 Employment Answer Date Recorded Employment Unknown 09/01/2018 Comments No Sex and Gender Information Value Date Recorded Sex Assigned at Not on file Legal Sex Female 11:43 AM EDT Gender Identity Not on file Sexual Orientation Not on file Last Filed Vital Signs Vital Sign Reading Time Taken Comments Blood Pressure 124/81 03/04/2021 2:16 PM EST Pulse 69 03/04/2021 2:16 PM EST Temperature 36.2 C (97.1 F) 03/04/2021 12:54 PM EST Respiratory Rate 17 03/04/2021 2:16 PM EST Oxygen Saturation 98% 03/04/2021 2:16 PM EST Inhaled Oxygen Concentration - - Weight 88.9 kg (196 lb) 03/04/2021 11:50 AM EST Height 160 cm (5' 3 ) 03/04/2021 11:50 AM EST Body Mass Index 34.72 03/04/2021 11:50 AM EST Plan of Treatment Health Maintenance Due Date Last Done Comments Depression Screening 2002 Tobacco Screening 2002 Adult BMI Screening 02/20/2008 Pap Smear 2011 COVID-19 Vaccine ( season) 2023, 11/20/2020 Influenza Vaccine 11/21/2024 01/31/2021 DTaP,Tdap and Td Vaccines (2 - Tdap) 11/04/203010/21 Medical Devices Not on file Insurance [employer] Care Teams Assistant Service Manager Relationship Specialty Start Date End Date Deedee Tate DO PCP - General Family Medicine 02/22/21
--- OUTSIDE RECORDS SUMMARY | 2024-10-25 12:53 | XMS_ITS | Clinical Summary ---
Author Organization [facility] Address [address], [address] [place] [address] Care Team Providers Care Claim Service Representative Name Role Phone Bebeto, Deedee DO Primary Care Provider Unavailabl e Allergies No known active allergies Medications sertraline (ZOLOFT) 50 MG tablet Take 50 mg by mouth daily Active Active Problems Problem Noted Date Diagnosed Date Acute cholecystitis 02/05/2021 Social History Tobacco Use Types Packs/Day Years [...] Sign Reading Time Taken Comments Blood Pressure 134/52 02/06/2021 1:51 PM EST Pulse 64 02/06/2021 1:51 PM EST Temperature 36 C (96.8 F) 02/06/2021 1:51 PM EST Respiratory Rate 10 02/06/2021 1:51 PM EST Oxygen Saturation 98% 02/06/2021 1:51 PM EST Inhaled Oxygen Concentration - - Weight 88.9 kg (196 lb) 02/06/2021 11:06 AM EST Height 160 cm (5' 3 ) 02/06/2021 11:06 AM EST Body Mass Index 34.72 02/06/2021 11:06 AM EST Plan of Treatment Not on file Insurance [employer] Care Teams Claim Service Representative Relationship Specialty Start Date End Date Deedee Tate DO PCP - General 02/06/21
[2024-10-27 16:09] LABS: Age Gdln ACOG Testing Note (.); IGP, Aptima HPV, rfx 16/18,45 Note (.)
== END 2024-10-25 12:42 | disposition home or self-care (01) ==
LOC: LAB 12:41
PROVIDERS: Visit Provider Obstetrics & Gynecology
DX: Z01.419 Encounter for gynecological examination (general) (routine) without abnormal findings (principal)
CPT/HCPCS: 87624; 88175